=== PATIENT | female | born 1985 | race Two or more races ===

== ENCOUNTER 2017-08-27 05:07 | Emergency (ER) | payer BC ==
[~2017-08-27] VITALS: Ht 154.9 cm; Wt 72.6 kg
--- NOTE | 2017-08-27 05:34 | NUR ---
PT PRESENTED TO THE ER WITH A C/O RT FLANK PAIN THAT RADIATES FROM THE BACK TO THE ABD. PT AMBULATED WITH A SLOW STEADY GAIT. URINES SAMPLE OBTAINED.
[2017-08-27] MEDS ORDERED: ONDANSETRON HCL/PF 4 MG/2 ML VIAL ONE (05:44)
[2017-08-27] MEDS ORDERED: MORPHINE SULFATE INJ 4 MG/ML DISP.SYRIN ONE (05:45)
[2017-08-27 05:48] LABS: APPEARANCE,URINE CLEAR (CLEAR); BILIRUBIN,URINE NEGATIVE (NEGATIVE); BLOOD, URINE 3+ Ery/uL (NEGATIVE); COLOR,URINE YELLOW (YELLOW); KETONES,URINE 1+ (NEGATIVE); LEUKOCYTE ESTERASE ,URINE 1+ (NEGATIVE); NITRITE, URINE NEGATIVE (NEGATIVE); PROTEIN,URINE TRACE mg/dl (NEGATIVE); UGLUCOSE NEGATIVE (NEGATIVE); UROBILINOGEN,URINE 0.2 EU/dL (0.2)
[2017-08-27 05:49] LABS: RBC,URINE 21-50 /HPF (0-2)
[2017-08-27 05:50] LABS: BACTERIA,URINE Few /HPF (None Seen); SQUAMOUS EPITHELIAL CELL,UR Few /HPF (None Seen)
[2017-08-27 05:57] LABS: BASOPHILS # (AUTO) 0.1 /CMM (0.0-0.2); BASOPHILS % (AUTO) 1.2 % (0.0-2.0); EOSINOPHILS # (AUTO) 0.1 /CMM (0.0-0.7); EOSINOPHILS % (AUTO) 1.2 % (0.0-6.0); HEMATOCRIT 42 % (33-45); HEMOGLOBIN 14.1 g/dL (11.5-14.8); LYMPHOCYTES # (AUTO) 3.4 /CMM (0.8-4.8); LYMPHOCYTES % (AUTO) 29.9 % (20.0-44.0); MEAN CORPUSCULAR HEMOGLOBIN 29 PG (26.0-33.0); MEAN CORPUSCULAR HGB CONC 34 g/dl (31.0-36.0); MEAN CORPUSCULAR VOLUME 85 fL (82-100); MONOCYTES # (AUTO) 0.6 /CMM (0.1-1.30); MONOCYTES % (AUTO) 5.7 % (2.0-12.0); PLATELET COUNT (AUTO) 177 /CMM (150-450); RDW COEFFICIENT OF VARIATION 13.4 (11.5-15.0); RED BLOOD CELL COUNT(AUTO) 4.94 MIL/uL (4.0-5.2); WHITE BLOOD COUNT (AUTO) 11.3 K/uL (4.3-11.0)
--- NOTE | 2017-08-27 05:57 | NUR ---
PT GOING TO CT VIA WC.
[2017-08-27] MEDS ORDERED: ONDANSETRON HCL/PF 4 MG/2 ML VIAL IVP ONE (06:00)
[2017-08-27] MEDS ORDERED: MORPHINE SULFATE INJ 2 MG/ML DISP.SYRIN IV ONE (06:00)
[2017-08-27] MEDS ORDERED: IV NS 0.9% 1,000 ML BAG IV ONE (06:00)
[2017-08-27 06:09] LABS: CALCIUM, SERUM 9.2 mg/dL (8.5-10.1); CREATININE 1.1 mg/dL (0.6-1.3); POTASSIUM 3.5 mmol/L (3.5-5.1)
[2017-08-27 06:15] LABS: ALBUMIN 3.9 g/dL (3.4-5.0); BILIRUBIN,DIRECT 0.1 mg/dL (0.0-0.2); BILIRUBIN,TOTAL 0.5 mg/dL (0.2-1.0); TOTAL PROTEIN, SERUM 7.7 g/dL (6.4-8.2)
--- NOTE | 2017-08-27 06:18 | NUR ---
PT RETURNED FROM CT VIA WC.
--- NOTE | 2017-08-27 06:52 | NUR ---
[facility] CALLED BACK WITH INFORMATION RE: [facility].
--- NOTE | 2017-08-27 06:54 | NUR ---
CALLING DR LOPES - UROLOGY- [place]. [phone]
--- NOTE | 2017-08-27 07:11 | NUR ---
REPORT GIVEN TO PATIENCE ADHIKARI FOR DEYVI.
[2017-08-27 07:26] VITALS: BP 114/71
--- NOTE | 2017-08-27 07:27 | NUR ---
IV removed. Catheter intact and site benign. Pressure and 4x4 applied to site. No bleeding noted.
--- NOTE | 2017-08-27 07:27 | NUR ---
Patient discharged to home in stable condition. Written and verbal after care instructions given. Patient verbalizes understanding of instruction.
== END 2017-08-27 07:26 | disposition home or self-care (01) ==
LOC: ER 05:09
DX: N13.2 Hydronephrosis with renal and ureteral calculous obstruction (principal)
CPT/HCPCS: 36415; 74176; 80048; 80076; 81001; 83690; 84703; 85025; 87086; 96361; 96374; 96375; 99285; A4606; J2270; J2405; J7030; 81000-TC; Z7610